=== PATIENT | male | born 1970 | race Caucasian/White ===

== ENCOUNTER → 2022-11-04 | Day surgery (SDC) | payer OTHER ==
[~2022-11-04] MED LIST: ALPRAZolam 0.25 MG TAB PO PRN; ALPRAZolam 0.5 MG TAB PO PRN; ASPIRIN 325 MG TAB PO STA; ASPIRIN 81 MG PO SCH; ATORVASTATIN 40 MG TAB PO SCH; ATROPINE SULFATE 0.1 MG/ML 10ML SYRINGE IV PRN; CLOPIDOGREL 75 MG TAB ONE; CLOPIDOGREL 75 MG TAB PO ONE; CLOPIDOGREL 75 MG TAB PO SCH; HEPARIN SODIUM 1,000 UN/ML (10ML VL) ONE; IOPAMIDOL-370 100ML BTL INJ ONE; LIDOCAINE 1% INJ 10MG/ML (5 ML VIAL-PF) SQ ONE; MAG HYDROX/AL HYDROX/SIMETH 30 ML CUP PO PRN; METOPROLOL SUCCINATE (ER) 25 MG TAB.ER.24H PO SCH; NITROGLYCERIN SL TABS 0.4 MG TAB SUBLINGUAL PRN; NON FORMULARY DRUG (Aspirin [Adult Low Dose Aspirin Ec] 81 MG Tablet) PO SCH; NON FORMULARY DRUG (Lisinopril [Lisinopril] 40 MG Tablet) PO SCH; RX INFO: IV CONTRAST WAS GIVEN 1 EACH MISC MISCELLANE PRN; SODIUM CHLORIDE 0.9% 1,000 ML in EMPTY BAG 1 BAG IV SCH; VERAPAMIL 2.5 MG/ML 2 ML AMP ONE; VERAPAMIL SYRINGE (5 MG/10 ML) INTRAARTER ONE; ZOLPIDEM 5 MG TAB PO PRN; fentaNYL (PF) 50 MCG/ML 2 ML AMP IVP ONE; fentaNYL (PF) 50 MCG/ML 2 ML AMP ONE; hydroCHLOROthiazide 25 MG TAB PO SCH; lisinopriL 10 MG TAB PO SCH; lisinopriL 10 MG TAB PO STA
[2022-11-04 10:50] VITALS: TEMP 98.3
[2022-11-04 11:05] LABS: Basophils % (A) 1 %; Eosinophils # (A) 0.3 k/uL (0-0.7); Eosinophils % (A) 3 %; HCT 42.6 % (39.0-53.0); HGB 15.1 gm/dL (13.0-17.5); Lymphocytes # (A) 2.2 k/uL (1.0-4.8); Lymphocytes % (A) 23 %; MCH 32.6 pg (25.0-35.0); MCHC 35.3 g/dL (31.0-37.0); MCV 92.2 fL (80.0-100.0); Mean Platelet Volume 9.6; Monocytes # (A) 0.5 k/uL (0-1.0); Monocytes % (A) 6 %; Neutrophils # (A) 6.2 k/uL (1.3-7.7); Neutrophils % (A) 66 %; Platelet Count 170 k/uL (150-450); RBC 4.62 m/uL (4.30-5.90); RDW 12.8 % (11.5-15.5); WBC 9.4 k/uL (3.8-10.6)
[2022-11-04 11:09] LABS: African American GFR (CKD) >90 (>60 ml/min/1.73 sqM); Anion Gap 7 mmol/L; Blood Urea Nitrogen 15 mg/dL (9-20); Calcium 8.6 mg/dL (8.4-10.2); Carbon Dioxide 25 mmol/L (22-30); Chloride 106 mmol/L (98-107); Glucose 105 mg/dL (74-99); Non-African American GFR(CKD) >90 (>60 ml/min/1.73 sqM); Potassium 4.1 mmol/L (3.5-5.1); Sodium 138 mmol/L (137-145)
[2022-11-04] MEDS: MIDAZOLAM 2 MG/2 ML VIAL IVP ONE ×2 (12:43→12:48)
[2022-11-04] MEDS: HEPARIN SODIUM 1,000 UN/ML (10ML VL) IVP ONE ×3 (12:47→13:20)
[2022-11-04] MEDS: NITROGLYCERIN 1000MCG/10ML SYRINGE INTRAARTER ONE ×5 (13:20→13:38)
--- NOTE | 2022-11-04 14:36 | P.PRCINT ---
Percutaneous Coronary Int. - Percutaneous Coronary Intervention Percutaneous Coronary Intervention: PROCEDURES PERFORMED: Left heart catheterization, bilateral coronary angiography, ultrasound guided arterial access, PCI mid LAD with 2.75 x 28 mm Xience PATI post dilated with a 3.0 NC balloon, IVUS LAD, iFR LAD, RCA, OM1 INDICATION: Abnormal stress test new-onset dyspnea on exertion concerning for unstable angina CONSENT:I have discussed the risks, benefits and alternative therapies for the above-mentioned procedure and for both sedation/analgesia as well as necessary blood product administration, if indicated, as they pertain to this patient. The patient has indicated understanding and acceptance of the risks and procedures discussed. PROCEDURE: After the risks, benefits and alternatives of the above mentioned procedure explained in detail with the patient, informed consent was obtained. Patient was taken to the catheterization lab and prepped and draped in usual fashion. Ultrasound guidance was used to assess for arterial access. 1% lidocaine was used to anesthetize the right radial artery. A 6-[place] sheath was placed in the right radial artery using modified Seldinger technique and ultrasound guidance. Left coronary angiography was performed with a 5-[place] JL 3.5 catheter and right coronary angiography was performed with a 5-[place] JR5 catheter in various views. A 5-[place] FR5 catheter was inserted into the left ventricle and pressure measurements were obtained. The decision was made to perform iFR. Through the FR5 diagnostic catheter, 0.014 pressure wire was advanced into the proximal RCA. It was then advanced 1 cm distal to the mid RCA lesion and iFR was performed and was normal at 0.98. The FR 5 was removed. A 6-[place] CLS 3.5 guide was used to engage the left main. There was significant tortuosity of the take off of the innominate making difficulty in using the catheter. Eventually however a 0.014 pressure wire was advanced into the left main and normalized. It was then advanced 1 cm distal to the mid LAD lesion and iFR was abnormal at 0.85. Therefore the decision was made to perform PCI. Predilation was performed with a 3.0 x 8 mm balloon. Next intravascular ultrasound was performed which showed reference vessel 3.0 cm. There was some spasm which improved with nitro. There was a long segment of disease distal to the diagonal branch and therefore decision made to stent the entire lesion. A 2.75 x 28mm Xience PATI was then placed in the mid LAD. The midportion of the stent was postdilated with a 3.0 noncompliant balloon. Next intravascular ultrasound was performed which showed diffuse proximal and mid LAD stenosis however excellent stent apposition with no dissection. Final angiograms were performed. Pre-intervention there was 80% stenosis and JESSICA-3 flow and postintervention there was less than 10% stenosis with JESSICA 3 flow. Next, the 0.014 pressure wire was brought back in the left main and normalized. It was then advanced into the OM1 branch and iFR was performed and was normal at 0.98. The right radial sheath was removed and a TR band was placed with hemostasis achieved. The patient tolerated the procedure well. Patient was transported back to the post catheterization holding area in stable condition. Conscious Sedation: Patient was monitored under the direct supervision of myself for conscious sedation using Versed and fentanyl for a total duration of 71 minutes HEMODYNAMICS: Aorta: 122/76 LV: 121/5, LVEDP 14 SELECTIVE CORONARY ARTERIOGRAPHY: LEFT MAIN: The left main is a large caliber vessel which bifurcates into the LAD and circumflex. There is no significant stenosis. LEFT ANTERIOR DESCENDING CORONARY ARTERY: LAD is a large caliber vessel which wraps around to the apex. There is diffuse disease including a proximal LAD 40% stenosis, mid LAD 50% stenosis, mid to distal LAD more focal 80% stenosis after a moderate caliber diagonal 2 branch. LEFT CIRCUMFLEX CORONARY ARTERY: Left circumflex is a moderate caliber vessel with mild luminal irregularities. OM1 has a proximal 60-70% stenosis. RIGHT CORONARY ARTERY: The right coronary artery is a moderate caliber vessel which gives off a PDA and PLV branch and is the dominant vessel. There is mid RCA 50% stenosis. FINAL IMPRESSION: 1. CAD as described above including proximal LAD 40%, mid LAD 50%, mid to distal LAD 80%, OM1 60-70%, mid RCA 50% stenosis. 2. iFR normal RCA and OM1, abnormal LAD 3. S/p PCI mid LAD with 2.75 x 28 mm Xience PATI post dilated with a 3.0 NC balloon 4. Normal left sided filling pressures PLAN: 1. Aggressive risk factor modification per most recent ACC/AHA guidelines. 2. Continue dual antiplatelets with aspirin and Plavix for 12 months.
[2022-11-04 15:40] VITALS: RESP 16
[2022-11-04 17:39] VITALS: PULSE 66
[2022-11-04 17:40] VITALS: BP 139/85
== END ==
LOC: CATHCVL 10:18
PROVIDERS: ATTEND Internal Medicine
DX: I25.10 Atherosclerotic heart disease of native coronary artery without angina pectoris (principal); J44.9 Chronic obstructive pulmonary disease, unspecified; Z82.49 Family history of ischemic heart disease and other diseases of the circulatory system; F17.210 Nicotine dependence, cigarettes, uncomplicated; Z79.899 Other long term (current) drug therapy
CPT/HCPCS: 92978; 93458; 93799; 80048; 85025; C9600; C1887 ×3; C1769 ×2; C1894; C1725 ×2; C1753; C1874; J2250; J2001; J3010; J1644; Q9967

== ENCOUNTER 2024-08-26 16:17 | Emergency (ER) | payer OTHER ==
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
--- NOTE | 2024-08-26 18:13 | XR ---
EXAMINATION TYPE: XR shoulder complete RT DATE OF EXAM: 08/26/2024 CLINICAL HISTORY: pain TECHNIQUE: Three views of the right shoulder are obtained. COMPARISON: None FINDINGS: There is no acute fracture/dislocation evident. The acromioclavicular and glenohumeral bernadette int spaces appear mildly narrowed. Spurring and subchondral cyst formation greater humeral tuberosity .. The visualized ribs are intact and unremarkable. IMPRESSION: 1. There is no acute fracture or dislocation. ICD 10 NO FRACTURE, INITIAL EVALUATION [facility], , 08/26/2024 6:11 PM
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
[2024-08-26 18:25] VITALS: PULSE 76; RESP 20
[2024-08-26 18:47] VITALS: BP 167/100; TEMP 98.2
== END 2024-08-26 19:01 | disposition home or self-care (01) ==
LOC: EC 16:17
DX: S40.011A Contusion of right shoulder, initial encounter (principal); S30.0XXA Contusion of lower back and pelvis, initial encounter; F17.200 Nicotine dependence, unspecified, uncomplicated; Z91.030 Bee allergy status; V43.52XA Car driver injured in collision with other type car in traffic accident, initial encounter; Y92.410 Unspecified street and highway as the place of occurrence of the external cause
CPT/HCPCS: 72100; 99285